=== PATIENT | female | born 1970 | race Caucasian/White ===

== ENCOUNTER 2016-07-08 17:01 | Outpatient (CLI) | payer OTHER ==
--- NOTE | 2016-07-08 19:00 | DIAGNOSTIC IMAGING REPORT ---
PROCEDURE: US COMPLETE PELVIC W/TRANSVAG INDICATION: MENOMETRORRHAGIA TECHNIQUE: Transabdominal and endovaginal perry scale and color Doppler sonographic images of the female pelvis were obtained. COMPARISON: None. FINDINGS: TRANSABDOMINAL SCANS: Right adnexal cyst. Normal kidneys. TRANSVAGINAL SCANS: Anteverted uterus measures 6 x 4.7 x 5 cm. Nabothian cysts are present. Myometrium is unremarkable. Normal endometrium measures 5.2 mm. Right ovary measures 3.9 x 3 x 4.1 cm with a 2.9 cm simple cyst. Left ovary measures 3.2 x 4.1 x 2.9 cm with a 2.2 cm simple cyst. There is vascular flow to both ovaries. No free fluid in the cul-de-sac. IMPRESSION: 1. Bilateral simple ovarian cysts. 2. Otherwise negative pelvic ultrasound
== END 2016-07-08 23:00 ==
LOC: US SRH 17:01
DX: N92.1 Excessive and frequent menstruation with irregular cycle (principal); N83.202 Unspecified ovarian cyst, left side; N83.201 Unspecified ovarian cyst, right side